=== PATIENT | male | born 1950 | race Caucasian/White ===

== ENCOUNTER 2018-10-13 10:41 | Emergency (ER) | payer MEDICARE, OTHER ==
[~2018-10-13 10:41] MED LIST: ASPI-611 PO; BETH10TA8 PO; DEXL60CA3 PO; DOCU-20 PO; METO50TA17 PO; RANI150T8 PO; SUCR1ORA2 PO
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
== END 2018-10-13 11:16 | disposition left against medical advice (07) ==
LOC: ER 10:42
DX: M79.673 Pain in unspecified foot (principal); Z53.21 Procedure and treatment not carried out due to patient leaving prior to being seen by health care provider